=== PATIENT | female | born 1945 | race Caucasian/White ===

== ENCOUNTER 2019-01-11 14:30 | Emergency (ER) | payer MEDICARE, SELFPAY ==
[2019-01-11 14:30] VITALS: BP 217/91; PULSE 107; RESP 18; TEMP 36.8; O2SAT 99; BMI 26.7
--- NOTE | 2019-01-11 14:40 | RAD_ITS ---
STUDY: X-RAY CHEST REASON FOR EXAM: Female, 73 years old. Dizziness. Diaphoretic. TECHNIQUE: Single AP portable view of the chest. COMPARISON: None. FINDINGS: Hyperinflation. Scattered calcified granulomas. There is no demonstrated pleural abnormality. Normal size heart. Normal mediastinum and heavenly. Normal visualized pulmonary arteries. There is atherosclerotic tortuosity of the aortic arch and descending thoracic aorta. There are degenerative changes of the visualized thoracic spine. Normal visualized ribs, clavicles, and shoulders. There is no demonstrated abnormality of the visualized soft tissue structures of the upper abdomen. RAD/Chest 1 View (Portable) IMPRESSION: Hyperinflation. The lungs are clear. Electronically Signed: Dell Espinosa, at 15:04 EDT , Service support ,
--- NOTE | 2019-01-11 14:40 | EKG12_ITS ---
Test Reason : CP Blood Pressure : / mmHG Vent. Rate : 098 BPM Atrial Rate : 098 BPM P-R Int : 170 ms QRS Dur : 090 ms QT Int : 386 ms P-R-T Axes : 063 058 003 degrees QTc Int : 492 ms Normal sinus rhythm Possible Left atrial enlargement Inferior infarct , possibly acute Right bundle branch block Consider right ventricular involvement in acute inferior infarct Abnormal ECG Confirmed by ADALBERTO CANO ([id number]), story editor TIANA ROLLE ([id number]) on 01/18/2019 8:50:22 AM Referred By: JON Confirmed By:ADALBERTO CANO
[2019-01-11 15:00] VITALS: BP 210/88; PULSE 99; RESP 18; O2SAT 97
[2019-01-11 15:02] LABS: Absolute Lymphocyte Count 4.19 X10^3/ul (0.83-4.51); Absolute Neutrophil Count 3.9 X10^3/uL (2.0-7.7); Basophil# 0.04 X10^3/uL; Basophil% 0.4 % (0-1); Eosinophil# 0.23 X10^3/uL; Eosinophils% 2.5 % (0-5); Hematocrit 40.3 % (37-47); Hemoglobin 13.3 g/dl (12.0-15.0); Lymphocyte # 4.19 X10^3/ul (4.0); Lymphocyte % 45.2 % (19-41); Mean Corpuscular Hgb 30.2 pg (27.0-32.0); Mean Corpuscular Volume 91.6 fL (81-99); Mean Platelet Vol. 9.8 fl (6.2-12.0); Monocyte# 0.85 X10^3/uL; Monocyte% 9.2 % (0-10); Neutrophil # 3.94 X10^3/uL (2.7-7.7); Neutrophil % 42.6 % (47-70); POSITIVE COUNT NO; POSITIVE DIFFERENTIAL NO; POSITIVE MORPHOLOGY NO; Platelet Count 287 K/mm3 (150-450); RBC Distribution Width CV 13.3 % (11.6-14.6); RBC Distribution Width SD 43.7 fl (35.1-43.9); White Blood Count 9.3 K/mm3 (4.4-11.0)
[2019-01-11 15:12] LABS: Anion Gap 8 (5-15); BUN 15 mg/dL (7-18); BUN/Creat Ratio 19.3 RATIO (10-20); Calcium,Total 8.8 mg/dL (8.5-10.1); Chloride 103 mmol/L (98-107); Creatinine, Serum 0.78 mg/dL (0.55-1.02); EST Glomerular Filtration Rate 77 mL/min (>60); Est Glom Filt Rate - Afr Amer 94 mL/min (>60); Estimated Creatinine Clearance 45.76 ml/min; Glucose 102 mg/dL (74-106); Potassium 3.4 mmol/L (3.5-5.1); Sodium Level 138 mmol/L (136-145)
[2019-01-11] MEDS: Clonidine HCl 0.1 MG, Clonidine HCl 0.2 MG 0.3 MG PO (15:41)
[2019-01-11 16:11] LABS: D-Dimer Quantitative (DVT/PE) 0.39 FEU/ug/m (0.27-0.49)
--- NOTE | 2019-01-11 16:32 | ED.VISSUMM ---
- ER Visit Summary Date of Service: 01/11/19 Chief Complaint: [] Feels if blood pressure is elevated general sense of fatigue dizziness History of Present Illness: The patient is a 73 F [] has history of hypertension otherwise she is very healthy no history of stroke [place] PE or DVT she indicates that basically for day or 2 she is felt as if her blood pressure is elevated, she indicates she can hear her pulse rate in her ears, feels slightly tired, and slightly has a sense of spinning. Her blood pressure was about 200 over palp at home no chest pain fever cough abdominal pain no bowel bladder habits her blood pressure on arrival is about 210/90, she indicates her normal blood pressure is much lower than that she is taking her blood pressure medications but has not seen her physicians in a few years that overall she is been able to do all of her daily activities without difficulty Physical Examination: [] Blood pressure as above vital signs otherwise unremarkable General, no distress resting comfortably HEENT is generally unremarkable The neck is supple no adenopathy Cardiovascular, regular rate and rhythm Lungs, clear bilateral Abdomen, soft nontender Extremities, no clubbing cyanosis or edema Neurologic, awake alert answering questions appropriately moving all 4 extremities cranial nerves are normal her gait is normal her muscle and motor strength and movement are normal her NIH is 0 Test Results: [] This time the patient is complaining of nonspecific generalized sense of fatigue elevated since her blood pressure and transient dizziness however her dizziness is really not vertigo she is able to walk without difficulty she has no cranial nerve abnormalities or nystagmus, at this time I explained we will obtain screening labs EKG recommended CT but she declined that we gave her clonidine 0.3 mg p.o. Patient's labs are all generally unremarkable please see those reports, the EKG shows a right bundle branch block with no acute injury pattern she had a bundle branch block before she confirms for me, on reevaluation her blood pressure is now 160/80 and she states she feels much better to baseline with no symptoms, we discussed the long differential of her symptoms we discussed inpatient versus outpatient management she does not wish to be admitted she wants to go home she has an appoint with your outpatient providers in the near term for further management she will avoid salt keep a log of her blood pressures and return for change in symptoms Emergency Department Course and Treatment: [] Treatment Plan: [] Disposition: [] Home stable Impression: [] Hypertension, nonspecific sense of dizziness and fatigue This note was generated with Video[employer] dictation software. It may contain incorrect words, spelling, and punctuation that were not noted in review of the chart prior to signing ED Disposition - Plan for ED Patient: Referrals: Raúl Ndiaye DO [Primary Care Provider] -
--- NOTE | 2019-01-11 16:35 | ED.DCSUM_ITS ---
- ER Visit Summary Date of Service: 01/11/19 Chief Complaint: [] Feels if blood pressure is elevated general sense of fatigue dizziness History of Present Illness: The patient is a 73 F [] has history of hypertension otherwise she is very healthy no history of stroke [place] PE or DVT she indicates that basically for day or 2 she is felt as if her blood pressure is elevated, she indicates she can hear her pulse rate in her ears, feels slightly tired, and slightly has a sense of spinning. Her blood pressure was about 200 over palp at home no chest pain fever cough abdominal pain no bowel bladder habits her blood pressure on arrival is about 210/90, she indicates her normal blood pressure is much lower than that she is taking her blood pressure medications but has not seen her physicians in a few years that overall she is been able to do all of her daily activities without difficulty Physical Examination: [] Blood pressure as above vital signs otherwise unremarkable General, no distress resting comfortably HEENT is generally unremarkable The neck is supple no adenopathy Cardiovascular, regular rate and rhythm Lungs, clear bilateral Abdomen, soft nontender Extremities, no clubbing cyanosis or edema Neurologic, awake alert answering questions appropriately moving all 4 e xtremities cranial nerves are normal her gait is normal her muscle and motor strength and movement are normal her NIH is 0 Test Results: [] This time the patient is complaining of nonspecific generalized sense of fatigue elevated since her blood pressure and transient dizziness however her dizziness is really not vertigo she is able to walk without difficulty she has no cranial nerve abnormalities or nystagmus, at this time I explained we will obtain screening labs EKG recommended CT but she declined that we gave her clonidine 0.3 mg p.o. Patient's labs are all generally unremarkable please see those reports, the EKG shows a right bundle branch block with no acute injury pattern she had a bundle branch block before she confirms for me, on reevaluation her blood pressure is now 160/80 and she states she feels much better to baseline with no symptoms, we discussed the long differential of her symptoms we discussed inpatient versus outpatient management she does not wish to be admitted she wants to go home she has an appoint with your outpatient providers in the near term for further management she will avoid salt keep a log of her blood pressures and return for change in symptoms Emergency Department Course and Treatment: [] Treatment Plan: [] Disposition: [] Home stable Impression: [] Hypertension, nonspecific sense of dizziness and fatigue This note was generated with [employer] (formerly [employer]) dictation software. It may contain incorrect words, spelling, and punctuation that were not noted in review of the chart prior to signing ED Disposition - Plan for ED Patient: Referrals: Raúl Ndiaye DO [Primary Care Provider] -
--- NOTE | 2019-01-11 16:36 | ED.DEP ---
ED Disposition - Plan for ED Patient: Instructions: Your High Blood Pressure Risk Factors, Taking Your Blood Pressure, What Is High Blood Pressure? Referrals: Raúl Ndiaye DO [Primary Care Provider] -
--- NOTE | 2019-01-11 16:40 | ED.RN ---
THIS RN WENT TO GIVE PT LABETALOL. PT BP 163/80. DR. WEBB INFORMED. LABETALOL NOT GIVEN.
[2019-01-11 16:51] VITALS: BP 163/80; PULSE 78; RESP 18; O2SAT 98
--- NOTE | 2019-01-11 16:53 | ED.RN ---
PT GIVEN WRITTEN AND VERBAL DISCHARGE INSTRUCTIONS AND VERBALIZES UNDERSTANDING. PT DENIES ANY FURTHER QUESTIONS. EDUCATED TO TAKE A LOG OF HER BPS AT HOME FOR FOLLOW UP WITH PCP. PT IV D/C AND COVERED WITH 2X2 GAUZE AND PAPER TAPE. PT DRESSES SELF AND AMBULATES OUT TO WAITING TO GET .
== END 2019-01-11 16:56 | disposition home or self-care (01) ==
PROVIDERS: Emergency Provider Emergency Medicine; Family Provider Family Medicine; PCP Family Medicine
DX: I10 Essential (primary) hypertension (principal); R42 Dizziness and giddiness; R53.83 Other fatigue
CPT/HCPCS: 71045; 80048; 84484; 85025; 85379; 93005; 99285; A4216

== ENCOUNTER → 2019-01-23 08:22 | Outpatient (CLI) | payer MEDICARE, SELFPAY ==
[2019-01-11 14:30] VITALS: BMI 26.7
[2019-01-23 12:19] LABS: Absolute Lymphocyte Count 2.53 X10^3/ul (0.83-4.51); Absolute Neutrophil Count 2.8 X10^3/uL (2.0-7.7); Basophil# 0.04 X10^3/uL; Basophil% 0.7 % (0-1); Eosinophils% 3.3 % (0-5); Hematocrit 42.9 % (37-47); Lymphocyte # 2.53 X10^3/ul (4.0); Lymphocyte % 41.7 % (19-41); Mean Corp Hgb Conc 32.6 g/gl (32-36); Mean Corpuscular Hgb 30.3 pg (27.0-32.0); Mean Corpuscular Volume 92.9 fL (81-99); Mean Platelet Vol. 10.6 fl (6.2-12.0); Monocyte# 0.46 X10^3/uL; Monocyte% 7.6 % (0-10); Neutrophil # 2.82 X10^3/uL (2.7-7.7); Neutrophil % 46.5 % (47-70); Platelet Count 285 K/mm3 (150-450); RBC Distribution Width CV 13.2 % (11.6-14.6); RBC Distribution Width SD 43.8 fl (35.1-43.9); Red Blood Count 4.62 M/mm3 (4.2-5.4); White Blood Count 6.1 K/mm3 (4.4-11.0)
[2019-01-23 12:22] LABS: POSITIVE COUNT NO; POSITIVE DIFFERENTIAL NO; POSITIVE MORPHOLOGY NO
[2019-01-23 12:43] LABS: Microalbumin,Random Urine 9.9 mg/L (NO RANGE EST.); Microalbumin:Creatinine Ratio 16.7 mg/g CRE (<30 mg/g CRE)
[2019-01-23 12:44] LABS: ALB/GLOB Ratio 1.1 RATIO (0.9-2.4); AST(SGOT) 20 U/L (15-37); Alanine Aminotransfer ALT/SGPT 32 U/L (13-56); Albumin, Serum 3.9 g/dL (3.2-5.0); Alkaline Phosphatase 119 U/L (45-117); Anion Gap 8 (5-15); BUN 14 mg/dL (7-18); BUN/Creat Ratio 19.6 RATIO (10-20); Calcium,Total 9.5 mg/dL (8.5-10.1); Chloride 105 mmol/L (98-107); Cholesterol 239 mg/dL (200); Creatinine, Serum 0.71 mg/dL (0.55-1.02); EST Glomerular Filtration Rate 85 mL/min (>60); Est Glom Filt Rate - Afr Amer 103 mL/min (>60); Globulin 3.6 g/dL (2.2-4.2); Glucose 93 mg/dL (74-106); High Density Lipoprotein 48 mg/dL; Potassium 4.4 mmol/L (3.5-5.1); Protein, Total 7.5 g/dL (6.4-8.2); Sodium Level 141 mmol/L (136-145); T4 Free Direct 0.74 ng/dL (0.76-1.46); Thyroid Stim Hormone (TSH) 4.58 uIU/mL (0.358-3.74); Triglycerides 231 mg/dL; Very Low Density Lipoprotein 46 mg/dL (5-40)
== END ==
PROVIDERS: Family Provider Family Medicine; PCP Family Medicine; Visit Provider Family Medicine
DX: I10 Essential (primary) hypertension (principal); E55.9 Vitamin D deficiency, unspecified; E03.9 Hypothyroidism, unspecified; E78.5 Hyperlipidemia, unspecified
CPT/HCPCS: 36415; 80053; 80061; 82043; 82306; 82570; 84439; 84443; 85025

== ENCOUNTER → 2019-02-06 08:52 | Outpatient (CLI) | payer MEDICARE, SELFPAY ==
[2019-01-11 14:30] VITALS: BMI 26.7
--- NOTE | 2019-02-06 08:54 | RDU_ITS ---
Reason For Study: Decompensated HTN Right Renal Artery Left Renal Artery Right renal artery ostium Left renal artery ostium 302.8/38.1 162.3/26.5 RSV/EDV. PSV/EDV. Right renal artery proximal Left renal artery proximal PSV/EDV 168.8/29.7 PSV/EDV. 316.6/40.4 . Right renal artery mid 181.7/52.4 Left renal artery mid 275.1/40.1 PSV/EDV. PSV/EDV . Right renal artery distal Left renal artery distal 244.1/40 178.5/36.2 PSV/EDV. PSV/EDV. Right RAR 1.83. Left RAR 3.19. Right Renal Parenchyma Left Renal Parenchyma Upper Pole Medula 30.3/6.6 PSV/EDV. Left upper pole medulla 24.1/6.9 Right upper pole medulla EDR 0.22 . PSV/EDV . Right upper pole medulla R.I. Left upper pole medulla EDR 0.29 . 0.78 . Left upper pole medulla R.I. 0.71 . Upper Hyader Cortx 23.9/5.7 PSV/EDV. UP Cortex 17.9/5 PSV/EDV. Right upper pole cortex EDR 0.24 . Left upper pole cortex EDR 0.28 . Right upper pole cortex R.I. 0.76 . Left upper pole cortex R.I. 0.72 . Right lower Pole medulla 27.6/6.6 Left lower Pole medulla 30.2/8.1 PSV/EDV . PSV/EDV . Right lower pole medulla EDR 0.24 . Left lower pole medulla EDR 0.27 . Right lower pole medulla R.I. Left lower pole medulla R.I. 0.73 . 0.76 . Lower Pole Cortx 20.4/5.7 PSV/EDV. Lower Pole Cortex 21.6/5.7 PSV/EDV. Left lower pole cortex EDR 0.28 . Right lower pole cortex EDR 0.26 . Left lower pole cortex R.I. 0.72 . Right lower pole cortex R.I. 0.74 . Left Renal Hilar Right Renal Hilar LT Hilar avg 30.2/8.1 PSV/EDV . Right Hilar avg 61.2/14.5 PSV/EDV. Left hilar acceleration time 40 Right hilar acceleration time 60 m/sec. m/sec. Left Renal Dimensions Right Renal Dimensions Left kidney size 10.28 cm . Right kidney size 9.87 cm . Left cortical dimension 1.41 cm . Right cortical dimension 1.04 cm . Aorta Proximal abdominal aorta 1.15 x 1.52 cm . Proximal abdominal aorta peak systolic velocity is 97 cm/sec . Distal abdominal aorta 1.27 x 1.25 cm . Distal abdominal aorta peak systolic velocity is 99.2 cm/sec . Interpretation Summary Dimensions of the intra-abdominal aorta appear normal, without evidence of aneurysmal dilatation. Right renal artery velocities are normal. Left renal artery velocities are elevated. Acceleration times are normal bilaterally. The right renal-aortic ratio is normal. The left renal-aortic ratio is high-normal. Renovascular resistance appears to be bilaterally elevated . Cortical dimensions are bilaterally normal. Kidneys appear normal in size bilaterally. There is no evidence of right renal artery stenosis. There is evidence of left renal artery stenosis, appearing to approach hemodynamic significance. Clinical correlation is advised. Ordering Physician: Raúl Ndiaye Referring Physician: Raúl Ndiaye Performed By: Francine Luther RVT
== END ==
PROVIDERS: Family Provider Family Medicine; PCP Family Medicine; Referring Provider Family Medicine; Visit Provider Family Medicine
DX: I10 Essential (primary) hypertension (principal)
CPT/HCPCS: 93975

== ENCOUNTER 2025-01-22 12:05 | Emergency (ER) | payer MEDICARE, SELFPAY ==
[2025-01-22 12:06] VITALS: BP 227/105; PULSE 117; RESP 19; TEMP 36.7; O2SAT 98; BMI 26.2
--- NOTE | 2025-01-22 12:21 | EDS_ITS ---
HPI History of Present Illness Chief Complaint: Lower Extremity Injury Detail of Chief Complaint: Right buttocks pain it is radiating anteriorly Informant: patient Onset/Context/Timing Onset: Days (Onset January 18) Context: Sudden Onset Chronic pain exacerbated by: Certain movements Injury: - (Patient states she was sitting in a chair when the pain started.) Timing: Continuous and Waxes and wanes Quality: Aching Location: Buttock and Right Leg Current Severity: Mild Maximum Severity: Severe Worsened by: improves with Movement and Bending; worse with Ambulation Relieved by: Nothing Associated Symptoms Associated Symptoms: Radiation to Right Leg (Radiation anteriorly does not go past the knee.); Negative for Numbness, Tingling, Radiation to Left Leg, Fever, Abdominal Pain, Dysuria, Unable to Ambulate, Unable to Transfer, Urinary Retention, Urinary Incontinence, Constipation or Fecal Incontinence Narrative Narrative: Patient is a 79-year-old woman. She has a history of hypertension. Patient states she was sitting in her chair watching the [employer] game on Tuesday. She developed pain. She localized pain to the right buttocks radiates anteriorly to the groin and down towards the knee. Certain movements exacerbate it. She states the pain was better Tuesday and Tuesday. Today when she got out of bed she had a severe pain. She denies bowel bladder dysfunction. She denies foot drop. She denies history of prior back problems. She does have a history of hypertension. She has not noted a rash. Prior similar symptoms: No Recent Illness/Hospitalization: No PFSH PFS Medical History Hypertension Anxiety Vitamin D deficiency Hyperlipidemia Left renal artery stenosis HTN (hypertension) Home Medications ?Medication ?Instructions ?Recorded ?Last Taken ?Type cholecalciferol (vitamin D3) 250 10,000 unit PO QWEEK 03/01/19 Unknown History mcg (10,000 unit) capsule losartan 50 mg tablet 50 mg PO DAILY 03/01/19 Unkn own History metoprolol succinate 50 mg 50 mg PO DAILY 03/01/19 Unk nown History tablet,extended release 24 hr hydrocodone-acetaminophen 5-325mg 1 tab PO Q6H PRN PRN Pain 3 days 01/22/25 Unknown Rx 5mg-325mg #10 TABLETS Allergy/AdvReac Type Severity Reaction Status Date / Time No Known Allergies Allergy Verified 01/22/25 12:29 Family History Sister Diabetes Heart disease Hypertension Hyperlipidemia Mother Heart disease Hyperlipidemia Hypertension Other Parkinsons disease Surgical History History of tonsillectomy and adenoidectomy History of bladder suspension procedure History of hysterectomy History of tubal ligation Social History (Updated 01/22/25 @ 12:[address] Jae Medina MD) household members: spouse Smoking Status: Never smoker alcohol intake: never substance use type: does not use ROS ROS ED Constitutional Constitutional ED: Denies chills, fever(s), subjective or sweats Gastrointestinal Gastrointestinal: Denies abdominal pain, constipation, nausea or vomiting Genitourinary Genitourinary ED: Denies dysuria, hematuria or urinary frequency Musculoskeletal Musculoskeletal: Reports back pain Integumentary Denies rash Neurologic Neurologic: Denies paresthesias or weakness Hematologic/Lymphatic Hematologic/Lymphatic: Denies easy bruising EXAM Physical Exam Const Vital Signs: 01/22/25 12:06 Temperature 98.1 F Temperature Source Oral Pulse Rate 117 H Respiratory Rate 19 H Blood Pressure 227/105 H Blood Pressure Mean 145 Pulse Ox 98 Oxygen Delivery Method Room Air Positive well nourished and well developed Constitutional Narrative: Patient appears no distress lying on the examination cot. Her blood pressure is elevated at 227/105 and her heart rate is elevated at 117. This may be due to the fact that she is in pain. General Appearance ED: well developed and pallor HEENT HEENT Narrative: HEENT is grossly unremarkable. Eyes PERRL and EOMs intact bilaterally General Eye ED: Negative for scleral icterus Resp normal respiratory effort and clear to auscultation bilaterally Cardio regular rate, regular rhythm, S1 normal heart sound, S2 normal heart sound and no murmurs GI GI Narrative: There is no right inguinal lymphadenopathy or mass. There is no skin lesions noted. Back/Spine normal to inspection and no thoracic nor lumbar tenderness Back/Spine Narrative: Nish Candace 4 test is negative. Patient is not very flexible. Straight leg test was negative right and left. Femoral stretch test was negative. Patella and ankle reflex are 1+. EHLs intact. 5/5 strength with plantar and dorsiflexion of her foot. Normal sensation L3?r S1 dermatome. DP and PT pulse are palpable. Patient still has hair on her toes. When I was straightening patient's leg out after performing Nish Candace 4 test she complained of pain and grabbed her thigh. Thoracic Spine / Upper Back: Negative for paraspinal muscle tenderness Lumbar Spine / Lower Back: ROM limited Extremity normal to inspection and no clubbing, cyanosis or edema General Extremety ED: Negative for tenderness or other findings General Extremity: Negative for other findings Neuro oriented x3 and no sensory deficits noted Neuro Narrative: Documented under the back portion of the EMR Sensorium / Orientation: alert Motor Exam: strength 5/5 throughout Deep Tendon Reflexes: Rt Patellar (L4): 1+, Lt Patellar (L4): 1+, Rt Ankle (S1): 1+ and Lt Ankle (S1): 1+ Deep Tendon Reflexes Back: Rt Patellar (L4): 1+, Lt Patellar (L4): 1+, Rt Ankle (S1): 1+ and Lt Ankle (S1): 1+ Plantar Reflex: Downgoing: bilateral Psych mental status grossly normal Skin no rashes or lesions noted and no wounds General Skin Exam: jaundice and pallor MDM MDM MDM Narrative Medical decision making narrative: Given that she has appearance of severe pain she is complaining of pain and may be the cause of her elevated blood pressure and heart rate. Will treat with opiate analgesics and she has no contraindication. Since patient has a normal neurovascular exam and pain is precipitated with movement of her leg we will mario alberto at for muscular pain. She has been applying heat. She was told that heat will make this worse. She has applied ice. Patient informed that she been guardian and doing a lot of bending and pulling. History & Record Review Additional record(s) reviewed:: Prior outpatient record (Outside facility no by Dr. Raúl Ndiaye for renal artery stenosis) and Prior ED visit (Last ER visit was December 2018 for hypertension.) Discharge Plan Triage Chief Complaint: Lower Extremity Injury ED Provider: Jae Medina Dx/Rx/DC Orders Clinical Impression: Strain of right hip and thigh, Hypertension, Sinus tachycardia Instructions: ED Hip Strain Prescriptions: New hydrocodone-acetaminophen 5-325 mg tablet 1 tab PO Q6H PRN PRN (Reason: Pain) 3 Days Qty: 10 0RF No Action cholecalciferol (vitamin D3) 10,000 unit capsule 10,000 unit PO QWEEK losartan 50 mg tablet 50 mg PO DAILY metoprolol succinate 50 mg tablet extended release 24 hr 50 mg PO DAILY Primary Care Provider: Raúl Ndiaye Referrals: Raúl Ndiaye, DO [Primary Care Provider] - 1 Week if not improving Activity Restrictions/Additional Instructions: 1. Apply ice to your right hip area 6-8 times a day. 2. Avoid activity that causes you increased pain 3. Take medication as prescribed 4. If you are unable to urinate, have loss of bowel control or are dragging your leg return to the emergency department immediately Print Language: Indonesian Disposition Disposition: Home, Self Care
[2025-01-22] MEDS: HYDROcodone Bitartrate/Apap 5/325 Tablet PO (12:31)
[2025-01-22 12:39] VITALS: BP 190/89; PULSE 102; RESP 18; TEMP 36.6; O2SAT 99
== END 2025-01-22 12:40 | disposition home or self-care (01) ==
PROVIDERS: Emergency Provider Emergency Medicine; PCP Family Medicine; Visit Provider Emergency Medicine
DX: S73.101A Unspecified sprain of right hip, initial encounter (principal); R00.0 Tachycardia, unspecified; I10 Essential (primary) hypertension; X58.XXXA Exposure to other specified factors, initial encounter
CPT/HCPCS: 99282

== ENCOUNTER → 2025-02-06 | Outpatient (CLI) | payer MEDICARE, SELFPAY ==
--- NOTE | 2025-02-06 09:40 | RAD_ITS ---
PROCEDURE: L/S SPINE MIN 4 VIEWS 02/06/2025 REASON FOR EXAM: LEG AND HIP PAIN TECHNIQUE: Five views. COMPARISON: None. FINDINGS: No evidence acute fracture or dislocation. Moderate discogenic degenerative changes of the visualized spine. [id number] facet arthropathy. No visualized pars defects. Minimal anterolisthesis of L4 on L5. RAD/L/S Spine Min 4 Views IMPRESSION: Spondylosis. Spondylolisthesis. Reading Location: [id number]
--- NOTE | 2025-02-06 09:40 | RAD_ITS ---
PROCEDURE: HIP, UNI W/ PELVIS 2-3 VIEWS 02/06/2025 REASON FOR EXAM: HIP PAIN TECHNIQUE: HIP, UNI W/ PELVIS 2-3 VIEWS COMPARISON: None. FINDINGS: Bones: [id number] appearance of glenohumeral joint. Subchondral geodes and sclerosis are present. There is deformity of the bone ends. Calcification of the labrum versus osteophytes Joints: Moderately severe advanced right hip osteoarthritis. Left hip shows only moderate osteoarthritis pelvis and SI joints are relatively intact otherwise. Soft tissues: Significant soft tissue findings appreciated. Other: RAD/HIP, UNI W/ Pelvis 2-3 Views IMPRESSION: Moderately severe advanced right hip joint osteoarthritis. Moderate left hip osteoarthritis. Reading Location[facility]
--- OUTSIDE RECORDS SUMMARY | 2025-02-06 11:31 | XMS RPT_ITS | CCD ---
Author Organization [facility] Care Team Providers Care Railroad Supervisor Of Engines Name Role Phone Jae Medina Attending Unavailable Raúl Ndiaye Primary Care Unavailable Dr. Raúl Ndiaye DO Primary Care Provider Dr. Jae Medina MD Emergency Provider Medications Current Medications Medication Drug Class(es) Dates Sig (Normalized) Sig (Original) acetaminophen 325 mg / HYDROcodone bitartrate 5 mg oral tablet (1 source) Opioid Agonist Start: 01-22-2025 take 1 tablet by mouth every six hours as needed for pain Hydrocodone-Aceta minophen 5-325 mg tablet Active 1 {tbl} PO EVERY 6 HOURS NEEDED as needed for Pain 10 January 22, 2025 Start: 01-22-2025 take 1 tablet by nicole th every six hours as needed for pain Hydrocodone-Acetaminophen 5-325 mg table t Active 1 {tbl} PO EVERY 6 HOURS NEEDED as needed for Pain 10 January 22, 2025 cholecalciferol 0.25 mg oral capsule (1 source) Vitamin D Start: 03-01-2019 take 1 capsule by mouth every week Cholecalciferol (Vitamin D3) 10,000 unit capsule Active 81719 U PO EVERY WEEK March 01, 2019 12:00am losartan potassium 50 mg oral tablet (3 sources) Angiotensin 2 Receptor Yosi Start: 03-01-2019 take 1 tablet by mouth once daily Losartan 50 mg tablet Active 50 mg PO DAILY March 01, 2019 12:00am Start: 04-04-2018 End: 03-01-2019 take 2 tablets by mouth once daily Losartan 25 mg tablet Discontinued 50 mg PO daily April 04, 2018 10:04am March 01, 2019 7:41am Start: 04-04-2018 End: 04-04-2018 take 1 tablet by mouth once daily Losartan 25 mg tablet Discontinued 25 mg PO daily April 04, 2018 12:00am April 04, 2018 10:04am 24 hr metoprolol succinate 50 mg extended release oral tablet (1 source) beta-Adrenergic Yosi Start: 03-01-2019 take 1 tablet by mouth once daily Metoprolol Succinate 50 mg tablet extended release 24 hr Active 50 mg PO DAILY March 01, 2019 12:00am Completed/Discontinued Medications Medication Drug Class(es) Dates Sig (Normalized) Sig (Original) nitrofurantoin, macrocrystals 25 mg / nitrofurantoin, monohydrate 75 mg oral capsule (1 source) Nitrofuran Antibacterial Start: 04-04-2018 End: 04-11-2018 take 1 capsule by mouth every twelve hours at mealtime Nitrofurantoin Monohyd/M-Cryst 100 mg capsule Discontinued 1 NMA PO Q12H 14 April 04, 2018 12:00am April 10, 2018 12:00am April 11, 2018 12:07am administer with a meal/food; swallow whole; do not open, crush, dissolve , or chew Problems Problem Classification Problem Date Documented Da te Episodic/Chronic Cardiac dysrhythmias (1 source) Sinus tachycardia; Translations: [Tachycardia, unspecified] 01-22-2025 Episodic Essential hypertension (1 source) Hypertensive disorder; Translations: [Essential (primary) hypertension] 03-01-2019 Chronic Other connective tissue disease (1 source) Pain in right leg; Translations: [Pain in right leg] Onset: 01-25-2025 Episodic Sprains and strains (1 source) Strain of muscle of lower limb; Translations: [Strain of muscle, fascia and tendon of right hip, initial encounter] 01-22-2025 Episodic Urinary tract infections (1 source) Urinary tract infectious disease; Translations: [Urinary tract infection, site not specified] 04-04-2018 Episodic Results Test Name Value Interpretation Reference Range Facil ity Emergency Department Summary on 01-22-2025 Emergency Department Summary [facility] Medical Records Department [address] [place] [address] Emergency Department Summary 01/22/25 MR#: [id number] Acct: [id number] Name: DULCE DICKERSON Rep #: [id number] : 1945 79 From: Jae Medina MD PCP: Dr. Raúl Ndiaye, DO Status:REG ER Location: ED HPI History of Present Illness Chief Complaint: Lower Extremity Injury Detail of Chief Complaint: Right buttocks pain it is radiating anteriorly Informant: patient Onset/Context/Timing Onset: Days (Onset January 18) Context: Sudden Onset Chronic pain exacerbated by: Certain movements Injury: - (Patient states she was sitting in a chair when the pain started.) Timing: Continuous and Waxes and wanes Quality: Aching Location: Buttock and Right Leg Current Severity: Mild Maximum Severity: Severe Worsened by: improves with Movement and Bending; worse with Ambulation Relieved by: Nothing Associated Symptoms Associated Symptoms: Radiation to Right Leg (Radiation anteriorly does not go past the knee.); Negative for Numbness, Tingling, Radiation to Left Leg, Fever, Abdominal Pain, Dysuria, Unable to Ambulate, Unable to Transfer, Urinary Retention, Urinary Incontinence, Constipation or Fecal Incontinence Narrative Narrative: Patient is a 79-year-old woman. She has a history of hypertension. Patient states she was sitting in her chair watching the [employer] game on Tuesday. She developed pain. She localized pain to the right buttocks radiates anteriorly to the groin and down towards the knee. Certain movements exacerbate it. She states the pain was better Tuesday and Tuesday. Today when she got out of bed she had a severe pain. She denies bowel bladder dysfunction. She denies foot drop. She denies history of prior back problems. She does have a history of hypertension. She has not noted a rash. Prior similar symptoms: No Recent Ill[facility] Medical History Hypertension Anxiety Vitamin D deficiency Hyperlipidemia Left renal artery stenosis HTN (hypertension) Home Medications ???Medication ???Instructions ???Recorded ???Last Taken ???Type cholecalciferol (vitamin D3) 250 10,000 unit PO QWEEK 03/01/19 Unkn own History mcg (10,000 unit) capsule losartan 50 mg tablet 50 mg PO DAILY 03/01/19 Unknown Hi story metoprolol succinate 50 mg 50 mg PO DAILY 03/01/19 Unknown Hi story tablet,extended release 24 hr hydrocodone-acetaminop hen 5-325mg 1 tab PO Q6H PRN PRN Pain 3 days 01/22/25 Unknown Rx 5mg-325mg #10 TABLETS Allergy/AdvReac Type Severity Reaction Status Date / Time No Known Allergies Allergy Verified 01/22/25 12:29 Family History Sister Diabetes Heart disease Hypertension Hyperlipidemia Mother Heart disease Hyperlipidemia Hypertension Other Parkinsons disease Surgical History History of tonsillectomy and adenoidectomy History of bladder suspension procedure History of hysterectomy History of tubal ligation Social History (Updated 01/22/25 @ 12:[address] Jae Medina MD) household members: spouse Smoking Status: Never smoker alcohol intake: never substance use type: does not use ROS ROS ED Constitutional Constitutional ED: Denies chills, fever(s), subjective or sweats Gastrointestinal Gastrointestinal: Denies abdominal pain, constipation, nausea or vomiting Genitourinary Genitourinary ED: Denies dysuria, hematuria or urinary frequency Musculoskeletal Musculoskeletal: Reports back pain Integumentary Denies rash Neurologic Neurologic: Denies paresthesias or weakness Hematologic/Lymphatic Hematologic/Lymphatic: Denies easy bruising EXAM Physical Exam Const Vital Signs: 01/22/25 12:06 Temperature 98.1 F Temperature Source Oral Pulse Rate 117 H Respiratory Rate 19 H Blood Pressure 227/105 H Blood Pressure Mean 145 Pulse Ox 98 Oxygen Delivery Method Room Air Positive well nourished and well developed Constitutional Narrative: Patient appears no distress lying on the examination cot. Her blood pressure is elevated at 227/105 and her heart rate is elevated at 117. This may be due to the fact that she is in pain. General Appearance ED: well developed and pallor HEENT HEENT Narrative: HEENT is grossly unremarkable. Eyes PERRL and EOMs intact bilaterally General Eye ED: Negative for scleral icterus Resp normal respiratory effort and clear to auscultation bilaterally Cardio regular rate, regular rhythm, S1 normal heart sound, S2 normal heart sound and no murmurs GI GI Narrative: There is no right inguinal lymphadenopathy or mass. There is no skin lesions noted. Back/Spine normal to in (more content not included)... Normal [facility] Vital Signs Date Time Vital Sign Value Performing Clinician Faci lity 01-22-2025 12:39-0400 Body temperature 97.9 [degF] Dr. Raúl Ndiaye DO Work Phone: [facility] 01-22-2025 12:39-0400 Diastolic blood pressure 89 mm[Hg] Dr. Raúl Ndiaye DO Work Phone: [facility] 01-22-2025 12:39-0400 Heart rate 102 /min Dr. Raúl Ndiaye DO Work Phone: [facility] 01-22-2025 12:39-0400 Respiratory rate 18 /min Dr. Raúl Ndiaye DO Work Phone: [facility] 01-22-2025 12:39-0400 SaO2% (BldA) [Mass fraction] 99 % Dr. Raúl Ndiaye DO Work Phone: [facility] 01-22-2025 12:39-0400 Systolic blood pressure 190 mm[Hg] Dr. Raúl Ndiaye DO Work Phone: [facility] 01-22-2025 12:06-0400 Body height 165.[address] Raúl Ndiaye DO Work Phone: [facility] 01-22-2025 12:06-0400 Body mass index (BMI) [Ratio] 26.2 kg/m2 Dr. Raúl Ndiaye DO Work Phone: [facility] 01-22-2025 12:06-0400 Body weight 71.[address] Raúl Ndiaye DO Work Phone: [facility] Encounters Encounter Date Encounter Type Care Provider Facility Start: 01-22-2025 End: 01-22-2025 [facility] Plan of Treatment Date Care Activity Detail Author Start: 01-22-2025 [facility] Patient Education ED Hip Strain [facility] Work Phone: Patient referral [facility] Work Phone: Payers Date Payer Category Payer Private Health Insurance [id number] 2025 Self-pay 2014 Unknown STACI [id number] Medicare MEDICARE PART A B [id number] Unknown [id number] Social History Date Type Detail Facility Start: 01-22-2025 Tobacco smoking stat us NVIS Never smoked tobacco (finding) [facility] Start: 1945 Sex Assigned At Female [facility] Discharge summary 01-22-2025 Note Date & Type Note Facility 01-22-2025 Discharge summary [facility] Discharge summary Note Date & Type Note Facility Discharge summary Note Date/Time January 22, 2025 12:32pm [facility] Medical Records Department [address] [place] [address] Emergency Department Summary 01/22/25 MR#: [id number] Acct: [id number] Name: DULCE DICKERSON Rep #:[id number] : 1945 79 From: Jae Medina MD PCP: Dr. Raúl Ndiaye, DO Status:REG ER Location: ED HPI History of Present Illness Chief Complaint: Lower Extremity Injury Detail of Chief Complaint: Right buttocks pain it is radiating anteriorly Informant: patient Onset/Context/Timing Onset: Days (Onset January 18) Context: Sudden Onset Chronic pain exacerbated by: Certain movements Injury: - (Patient states she was sitting in a chair when the pain started.) Timing: Continuous and Waxes and wanes Quality: Aching Location: Buttock and Right Leg Current Severity: Mild Maximum Severity: Severe Worsened by: improves with Movement and Bending; worse with Ambulation Relieved by: Nothing Associated Symptoms Associated Symptoms: Radiation to Right Leg (Radiation anteriorly does not go past the knee.); Negative for Numbness, Tingling, Radiation to Left Leg, Fever, Abdominal Pain, Dysuria, Unable to Ambulate, Unable to Transfer, Urinary Retention, Urinary Incontinence, Constipation or Fecal Incontinence Narrative Narrative: Patient is a 79-year-old woman. She has a history of hypertension. Patient states she was sitting in her chair watching the [employer] game on Tuesday. She developed pain. She localized pain to the right buttocks radiates anteriorly tothe groin and down towards the knee. Certain movements exacerbate it. She states the pain was better Tuesday and Tuesday. Today when she got out of bed she had a severe pain. She denies bowel bladder dysfunction. She deniesfoot drop. She denies history of prior back problems. She does have a history of hypertension. She has not noted a rash. Prior similar symptoms: No Recent Illness/Hospitalization: No [facility] Medical History Hypertension Anxiety Vitamin D deficiency Hyperlipidemia Left renal artery stenosis HTN (hypertension) Home Medications ?Medication ?Instructions ?Recorded ?Last Taken ?Type cholecalciferol (vitamin D3) 250 10,000 unit PO QWEEK 03/01/19 Unknown History mcg (10,000 unit) capsule losartan 50 mg tablet 50 mg PO DAILY 03/01/19 Unkn own History metoprolol succinate 50 mg 50 mg PO DAILY 03/01/19 Unk nown History tablet,extended release 24 hr hydrocodone-acetaminophen 5-325mg 1 tab PO Q6H PRN PRN Pain 3 days 01/22/25 Unknown Rx 5mg-325mg #10 TABLETS Allergy/AdvReac Type Severity Reaction Status Date / Time No Known Allergies Allergy Verified 01/22/25 12:29 Family History Sister Diabetes Heart disease Hypertension Hyperlipidemia Mother Heart disease Hyperlipidemia Hypertension Other Parkinsons disease Surgical History History of tonsillectomy and adenoidectomy History of bladder suspension procedure History of hysterectomy History of tubal ligation Social History (Updated 01/22/25 @ 12:[address] Jae Medina MD) household members: spouse Smoking Status: Never smoker alcohol intake: never substance use type: does not use ROS ROS ED Constitutional Constitutional ED: Denies chills, fever(s), subjective or sweats Gastrointestinal Gastrointestinal: Denies abdominal pain, constipation, nausea or vomiting Genitourinary Genitourinary ED: Denies dysuria, hematuria or urinary frequency Musculoskeletal Musculoskeletal: Reports back pain Integumentary Denies rash Neurologic Neurologic: Denies paresthesias or weakness Hematologic/Lymphatic Hematologic/Lymphatic: Denies easy bruising EXAM Physical Exam Const Vital Signs: 01/22/25 12:06 Temperature 98.1 F Temperature Source Oral Pulse Rate 117 H Respiratory Rate 19 H Blood Pressure 227/105 H Blood Pressure Mean 145 Pulse Ox 98 Oxygen Delivery Method Room Air Positive well nourished and well developed Constitutional Narrative: Patient appears no distress lying on the examination cot. Her blood pressure iselevated at 227/105 and her heart rate is elevated at 117. This may be due to the fact that she is in pain. General Appearance ED: well developed and pallor HEENT HEENT Narrative: HEENT is grossly unremarkable. Eyes PERRL and EOMs intact bilaterally General Eye ED: Negative for scleral icterus Resp normal respiratory effort and clear to auscultation bilaterally Cardio regular rate, regular rhythm, S1 normal heart sound, S2 normal heart sound and no murmurs GI GI Narrative: There is no right inguinal lymphadenopathy or mass. There is no skin lesions noted. Back/Spine normal to inspection and no thoracic nor lumbar tenderness Back/Spine Narrative: Nish Candace 4 test is negative. Patient is not very flexible. Straight leg test was negative right and left. Femoral stretch test was negative. Patella and ankle reflex are 1+. EHLs intact. 5/5 strength with plantar and dorsiflexion of her foot. Normal sensation L3?r S1 dermatome. DP and PT pulse are palpable. Patient still has hair on her toes. When I was straightening patient's leg out after performing Nish Candace 4 test she complained of pain and grabbed her thigh. Thoracic Spine / Upper Back: Negative for paraspinal muscle tenderness Lumbar Spine / Lower Back: ROM limited Extremity normal to inspection and no clubbing, cyanosis or edema General Extremety ED: Negative for tenderness or other findings General Extremity: Negative for other findings Neuro oriented x3 and no sensory deficits noted Neuro Narrative: Documented under the back portion of the EMR Sensorium / Orientation: alert Motor Exam: strength 5/5 throughout Deep Tendon Reflexes: Rt Patellar (L4): 1+, Lt Patellar (L4): 1+, Rt Ankle (S1):1+ and Lt Ankle (S1): 1+ Deep Tendon Reflexes Back: Rt Patellar (L4): 1+, Lt Patellar (L4): 1+, Rt Ankle (S1): 1+ and Lt Ankle (S1): 1+ Plantar Reflex: Downgoing: bilateral Psych mental status grossly normal Skin no rashes or lesions noted and no wounds General Skin Exam: jaundice and pallor MDM MDM MDM Narrative Medical decision making narrative: Given that she has appearance of severe pain she is complaining of pain and may be the cause of her elevated blood pressure and heart rate. Will treat with opiate analgesics and she has no contraindication. Since patient has a normal neurovascular exam and pain is precipitated with movement of her leg we will treat for muscular pain. She has been applying heat. She was told that heat will make this worse. She has applied ice. Patient informed that she been guardian and doing a lot of bending and pulling. History & Record Review Additional record(s) reviewed:: Prior outpatient record (Outside facility no by Dr. Raúl Ndiaye for renal artery stenosis) and Prior ED visit (Last ER visit was December 2018 for hypertension.) Discharge Plan Triage Chief Complaint: Lower Extremity Injury ED Provider: Jae Medina Dx/Rx/DC Orders Clinical Impression: Strain of right hip and thigh, Hypertension, Sinus tachycardia Instructions: ED Hip Strain Prescriptions: New hydrocodone-acetaminophen 5-325 mg tablet 1 tab PO Q6H PRN PRN (Reason: Pain) 3 Days Qty: 10 0RF No Action cholecalciferol (vitamin D3) 10,000 unit capsule 10,000 unit PO QWEEK losartan 50 mg tablet 50 mg PO DAILY metoprolol succinate 50 mg tablet extended release 24 hr 50 mg PO DAILY Primary Care Provider: Raúl Ndiaye Referrals: Raúl Ndiaye, [Primary Care Provider] - 1 Week if not improving Activity Restrictions/Additional Instructions: 1. Apply ice to your right hip area 6-8 times a day. 2. Avoid activity that causes you increased pain 3. Take medication as prescribed 4. If you are unable to urinate, have loss of bowel control or are dragging your leg return to the emergency department immediately Print Language: Yi Disposition Disposition: Home, Self Care What to do if you have Problems For any increased pain, shortness of breath, bleeding, nausea or vomiting, chestpain, or any unexpected problems, contact your Primary Care Provider. Call [facility] ([phone]) or report to the closest Emergency Room. Call 911 if necessary. 01/22/25 1232 <Electronically signed by Jae Medina MD> Cosigner Signature (if applicable): CC: Dr. Raúl Ndiaye DO ~ Signed [facility] Work Phone: Evaluation note Note Date & Type Note Facility Evaluation note No assessment information availa ble [facility] Work Phone: Hospital Discharge instructions Note Date & Type Note Facility Hospital Discharge instructions Additional Instructions 1. Apply ice to your right hip area 6-8 times a day. 2. Avoid activity that causes you increased pain 3. Take medication as prescribed 4. If you are unable to urinate, have loss of bowel control or are dragging your leg return to the emergency department immediately [facility] Work Phone: Reason for referral (narrative) Note Date & Type Note Facility Reason for referral (narrative) No reason for referral information available [facility] Work Phone: Summary Purpose Family History Relationship Condition Age at Onset Recorded Date/T arun Not Specified Parkinson's disease Unknown sister Diabetes mellitus Unknown Cardiac disease Unknown Hypertension Unknown Hyperlipidemia Unknown mother Cardiac disease Unknown Advance Directives No Advanced Directives Records Found Chief Complaint and Reason for Visit Chief Complaint Admit Date LOWER January 22, 2025 12:05 pm Additional Source Comments INFORMATION SOURCE (unrecogn ized section and content) DATE CREATED AUTHOR 01/26/2025 [facility] Care Teams (unrecognized sec tion and content) Team Status: Active Member Role Status Dates Dr. Raúl Ndiaye DO Primary Care Provider Active Team Status: Inactive Member Role Status Dates Dr. Raúl Ndiaye DO Primary Care Provider Active Start: January 22, 2025 End: January 22, 2025 Dr. Jae Medina MD Emergency Provider Active Sta rt: January 22, 2025 End: January 22, 2025 Goals (unrecognized section and content) Goals may be documented in a n alternate section FOR RECORDS PERTAINING TO PATIENTS WHO ARE OR HAVE BEEN ENROLLED IN A CHEMICAL DEPENDENCY/SUBSTANCEABUSE PROGRAM, SOME INFORMATION MAY BE OMITTED. This clinical summary was aggregated from multiple sources. Caution should be exercised in using it in the provision of clinical care. This summary normalizes information from multiple sources, and as a consequence, information in this document may materially change the coding, format and clinical context of patient data. In addition, data may be omitted in some cases. CLINICAL DECISIONS SHOULD BE BASED ON THE PRIMARY CLINICAL RECORDS. [facility] provides no warranty or guarantee of the accuracy or completeness of information in this document.
[2025-02-06 12:39] LABS: Absolute Lymphocyte Count 2.67 X10^3/uL (0.83-4.51); Absolute Neutrophil Count 5.9 X10^3/uL (2.0-7.7); Basophil# 0.06 X10^3/uL; Basophil% 0.6 % (0-1); Eosinophil# 0.21 X10^3/uL; Eosinophils% 2.1 % (0-5); Hematocrit 42.4 % (37-47); Hemoglobin 14.1 g/dL (12.0-15.0); Lymphocyte # 2.67 X10^3/ul (0.83-4.51); Lymphocyte % 27.2 % (19-41); Mean Corp Hgb Conc 33.3 g/dL (32-36); Mean Corpuscular Hgb 30.8 pg (27.0-32.0); Mean Corpuscular Volume 92.6 fL (81-99); Mean Platelet Vol. 10.6 fl (6.2-12.0); Monocyte# 0.92 X10^3/uL; Monocyte% 9.4 % (0-10); NRBC Flagged by Analyzer 0 % (0-5); Neutrophil # 5.91 X10^3/uL (2.7-7.7); Neutrophil % 60.2 % (47-70); Platelet Count 362 K/mm3 (150-450); RBC Distribution Width CV 12.8 % (11.6-14.6); RBC Distribution Width SD 43.3 fl (35.1-43.9); Red Blood Count 4.58 M/mm3 (4.2-5.4); White Blood Count 9.8 K/mm3 (4.4-11.0)
[2025-02-06 13:23] LABS: ALB/GLOB Ratio 1.7 RATIO (0.9-2.4); AST(SGOT) 21 U/L (<=31); Alanine Aminotransfer ALT/SGPT 19 U/L (<=34); Albumin, Serum 4.6 g/dL (3.4-4.8); Alkaline Phosphatase 113 U/L (35-104); Anion Gap 12 (5-15); BUN 18 mg/dL (4-19); BUN/Creat Ratio 26.2 RATIO (10-20); Calcium,Total 10.4 mg/dL (7.6-11.0); Chloride 99 mmol/L (98-108); Cholesterol 235 mg/dL (<=200); EST Glomerular Filtration Rate 88 (>60); Globulin 2.8 g/dL (2.2-4.2); Glucose 102 mg/dL (70-99); High Density Lipoprotein 57 mg/dL; Low Density Lipoprotein Calc. 147 mg/dL; Potassium 4.7 mmol/L (3.3-5.1); Protein, Total 7.3 g/dL (5.9-8.4); Sodium Level 134 mmol/L (133-145); Total Bilirubin 0.33 mg/dL (0.00-1.30); Triglycerides 151 mg/dL; Very Low Density Lipoprotein 30 mg/dL (5-40); Vitamin D,25 Hydroxy 25.4 ng/mL (30-100); cholesterol:hdl ratio screen 4.09
== END | disposition home or self-care (01) ==
LOC: MTLAB 09:32
PROVIDERS: PCP Family Medicine; Referring Provider Family Medicine; Visit Provider Family Medicine
DX: E03.8 Other specified hypothyroidism (principal); E55.9 Vitamin D deficiency, unspecified; M54.50 Low back pain, unspecified; M25.551 Pain in right hip
CPT/HCPCS: 36415; 72110; 73502; 80053; 80061; 82306; 84439; 84443; 85025

== ENCOUNTER → 2025-03-13 | Outpatient (CLI) | payer MEDICARE, SELFPAY ==
--- NOTE | 2025-03-13 12:50 | MRI_ITS ---
PROCEDURE: SPINE LUMBAR (ROUTINE) 03/13/2025 REASON FOR EXAM: RADICULOPATHY OF LUMBAR REGION TECHNIQUE: SPINE LUMBAR (ROUTINE) FINDINGS: Normal lumbar vertebral body height and alignment. Normal marrow signal. No subluxation. Normal conus. No retroperitoneal mass. At L1-2, disc dehydration and subtle annular bulging without significant spinal stenosis. Annular bulging with facet and ligamentous hypertrophy at L2-3 resulting in a mild degree of spinal canal narrowing. At L3-4 disc space narrowing, minimal annular bulge and facet arthrosis also results in mild spinal stenosis with inferior foraminal narrowing. At L4-5, also, mild canal narrowing from the same etiologies. However, suspect a superiorly extending disc fragment on sagittal image 6 on the right side which could encroach on the right L4 nerve minimally. Correlate for right L4 radiculopathy. L5-S1 is unremarkable MRI/Spine Lumbar (Routine) IMPRESSION: Mild canal narrowing throughout the lumbar spine. Sagittal image 6 reveals a disc fragment behind the L4 vertebral body on the ri ght side. Correlate for potential right L4 nerve root encroachment Reading [facility]
== END | disposition home or self-care (01) ==
PROVIDERS: PCP Family Medicine; Referring Provider Anesthesiology Pain Medicine; Visit Provider Anesthesiology Pain Medicine
DX: M54.16 Radiculopathy, lumbar region (principal)
CPT/HCPCS: 72148

== ENCOUNTER 2025-06-11 13:30 | Outpatient (RCR) | payer MEDICARE, SELFPAY ==
--- NOTE | 2025-05-15 13:55 | HP.PTEVAL_ITS ---
Patient's Visit Information Visit Information Visit Information: DULCE DICKERSON is a 80 year old F referred to Physical Therapy by Dr. Raúl Ndiaye DO with a diagnosis of L Radiculopathy/L DDD/B hip OA. Date of Evaluation: 05/15/25 Physical Therapist: ROSE MARIE Morales Visit Plan Frequency: 2x /Week Duration: 2 Months Plan: 2X/ week for 8 weeks for R MT/foam rolling of the R hip flexor/Quad, R hip AROM and stretching, Strengthening of the R hip and neutral spine core stability with HEP Pt was able to walk out with less pain and a little more confidence in her R leg. HEP: SKC, QS, LTR, and self MT to the R Quad/hip flexor Subjective Subjective: This started January 18. She was in [facility] all week and she was sitting more and walking more. She sat down to watch TV and had to change her position and it got worse and could not see anyone over the weekend and then went to the ER on that Tuesday and gave her pain meds and decided that it was her R hip (bone on bone). When the hydrocodone did not work she tried to Gabapetin but the pain would break through it and the same thing happened with prednisone and went to pain management. X-rays showed arthritis in her back and some inflammation and back was moderate arthritis but worse on the R side. Dr Fine wanted her to have an MRI and an injection. The injection got total pain relief for 4 days but came back but the anesthetic was strong for 3 hours. The MRI showed that in addition to the arthritis and inflammation the last disc was HD. Then he sent to referrals out to Dr Russo and one to PT. Dr Russo said that the HD was healing and that she did not need back surgery and the problems is that her hip and she would need a THR. She made another appt with Dr Ndiaye and he said that she still has too much ROM. Dr Fine has an appt with Jun 12 but if wants another injection before then she can call. She has to pull herself up the step if she was to lead with her R leg but can go up easy on the L. She can go down the steps recip though with no issue. Pain back pain: Pain Intensity (Out of 10): 0 Pain Intensity Range: 4 Comment: 4/10 upon standing R hip pain: Pain Intensity (Out of 10): 4 Comment: pain in in R Quad and down the side L hip pain: Pain Intensity (Out of 10): 0 Objective Objective: Gait: walks with short stride and decrease stance time on the R LE. LE MMT: R hip flex 10.1 and L 13.9 R knee ext 11.7 and L 16.9 R knee flex 8 and L 8.8 Pt is able to heel and toe raise Bridge: able to 3/4 normal ROM bridge but tighter on the R compared to the L hip flexor Patellar DTR 2+/3 -SLUMP test B Tight and limited hip IR and ER B but worse on the R compared to the L Tight in the R hip with Single knee to chest. Pt had a hard time straightening her R leg in supine...worked on some Quad STM and she was then able to straighten it and therapist was able to get the R leg off the edge of the mat and slowly bend to increase Quad flexibility After that pt was able to get up and walk with less pain on the R side Balance/Special Test Scores Oswestry Low Back Score: 13 Goals Goal 1:: I HEP Goal Time Frame: 6-8 Weeks Goal 2:: Pt to report a 50% reduction in R LE giving out or becoming weaker on her with gait Goal Time Frame: 6-8 Weeks Goal 3:: Be able to sit to stand without having pain Goal Time Frame: 6-8 Weeks Goal 4:: Be able to straighten her R leg in supine without hesitation and without pain Goal Time Frame: 6-8 Weeks Goal 5:: Be able to go up the steps recip with 1 handrail and not pulling on the handrail. Rehabilitation Potential Rehabilitation Potential: Good Anticipated Interventions Patient/Client Instruction: Educate patient on: Condition and Plan of Care For the Purpose of:: To decrease pain, To increase ROM, To improve nutrient delivery to tissue, To improve muscle performance and motor function, To improve ability to perform ADL's, To increase tolerance to activity/condition/position, To improve performance and independence with ADL's, To decrease level of supervision to perform tasks, To improve ability of physical actions for home/community/work/leisure, To improve gait and locomotor functions, To improve health of tissue, To decrease soft tissue restriction and To increase flexibility/ROM Therapeutic Exercise to Include: Strength training, Postural training, Flexibilty training, Gait and locomotor training, Neuromotor development, Passive ROM, Active ROM and Dynamic Lumbar Stabilization For the Purpose of:: To decrease pain, To increase ROM, To improve nutrient delivery to tissue, To improve muscle performance and motor function, To improve ability to perform ADL's, To increase tolerance to activity/condition/position, To improve performance and independence with ADL's, To decrease level of supervision to perform tasks, To improve ability of physical actions for home/community/work/leisure, To improve health of tissue, To decrease soft tissue restriction and To increase flexibility/ROM Functional Training to Include: Gait training For the Purpose of:: To improve gait and locomotor functions and To improve safety with gait Manual Therapy Techniques to Include: Passive ROM and Soft tissue mobilization For the Purpose of:: To decrease pain, To increase ROM, To improve nutrient delivery to tissue, To improve muscle performance and motor function, To improve ability to perform ADL's, To increase tolerance to activity/condition/position, To improve performance and independence with ADL's, To decrease level of supervision to perform tasks, To improve ability of physical actions for home/community/work/leisure, To improve gait and locomotor functions, To improve health of tissue, To decrease soft tissue restriction and To increase flexibility/ROM Text: Thank you for the opportunity to evaluate your patient. For Medicare and Medicare HMO plans, please review the plan of care and approve it. It will need to be FAXED BACK to us at [phone] for Medicare purposes. For Medicare only, by signing this I certify the plan of care. Please let me know if there are questions or concerns regarding this plan of care. Physician Signature: Date:
--- NOTE | 2025-06-11 14:09 | HP.PTDCSUM ---
Discharge Summary D/C summary: It has been my pleasure to treat DULCE DICKERSON referred by Dr. Raúl Ndiaye DO, with the diagnosis of L Radiculopathy/L DDD/B hip OA for a total of 9 visit(s). Discharge Date: 06/11/25 Please see the following information for a summary of their discharge status. Subjective Subjective: She thinks that therapy has def helped but it flared up this weekend and she is walking bad today. She had one injection and it helped for 4 days. She took the twilight and she can not remember anything for 3 hours. She feels that she needs another injection and she can not get into until the first week in June. She thinks that therapy has been helpful and she is doing exercises at home except the bridge cause she has not felt well enough to do it. She thinks that her leg is stronger and she has more confidence in her leg except today because today was a bad day. She thinks that the foam rolling was helping Pain back pain: Pain Intensity (Out of 10): 3 R hip pain: Pain Intensity (Out of 10): 6 L hip pain: Pain Intensity (Out of 10): 0 R groin: Pain Intensity (Out of 10): 4 Overall Improvement % Improvement: 5 Objective Objective/Function: Pt had a lot of pain and struggled to stand up today in the waiting room. We stick rolled out her R hip flexor/Quad and she was able to walk out with much bigger strides Pt has pain and decreased PROM of the R hip into IR Goals Goal 1:: I HEP Goal Progress: Goal Met Goal 2:: Pt to report a 50% reduction in R LE giving out or becoming weaker on her with gait Goal Progress: Goal Met Goal 3:: Be able to sit to stand without having pain Goal Progress: Progressing Goal 4:: Be able to straighten her R leg in supine without hesitation and without pain Goal Progress: Goal Met Goal 5:: Be able to go up the steps recip with 1 handrail and not pulling on the handrail. Goal Progress: Progressing Plan Plan: DC PT to HEP D/C Information Discharge Comments: DC PT to HEP and back to Dr Fine d/c sentence: If there are questions or concerns regarding this patient's physical therapy, please feel free to call me at [phone]. Thank you for the referral of this patient. Sincerely, Mayela Salas, MPT Balance/Gait/Functional tests Balance/Special Test Scores Oswestry Low Back Score: 12 Improvement % Improvement: 5
== END 2025-06-11 19:00 | disposition home or self-care (01) ==
LOC: PT 13:30
PROVIDERS: PCP Family Medicine; Referring Provider Family Medicine; Visit Provider Family Medicine
DX: M54.16 Radiculopathy, lumbar region (principal); M51.369 Other intervertebral disc degeneration, lumbar region without mention of lumbar back pain or lower extremity pain; M16.0 Bilateral primary osteoarthritis of hip
CPT/HCPCS: 97110; 97162; 97530